=== PATIENT | female | born 1945 | race Caucasian/White ===

== ENCOUNTER 2017-04-25 06:08 | Emergency (ER) | payer MEDICARE, OTHER ==
[~2017-04-25] VITALS: Ht 157.5 cm; Wt 72.5 kg
[2017-04-25 06:11] VITALS: BP 196/107; PULSE 70; RESP 20; TEMP 97.5; O2SAT 97
[2017-04-25] MEDS ORDERED: LIDOCAINE HCL 1% PF 2 ML VIAL ONE (06:35)
[2017-04-25] MEDS ORDERED: CELE20TA PO (06:36)
[2017-04-25] MEDS ORDERED: REST30CA PO (06:36)
[2017-04-25] MEDS ORDERED: TRAM50TA PO (06:36)
[2017-04-25] MEDS ORDERED: GABA300C5 PO (06:36)
[2017-04-25] MEDS ORDERED: DICL1CAP4 PO (06:36)
--- NOTE | 2017-04-25 06:44 | PD ---
Physical Exam Date Seen by Provider: Apr 25, 2017 Time Seen by Provider: 06:42 Narrative Skin: Patient has a 3 cm laceration to the left parietal scalp. Data Data Last Documented VS Vital Signs Date Time Temp Pulse Resp B/P (MAP) Pulse Ox O2 Delivery O2 Flow Rate FiO2 04/25/17 06:11 97.5 70 20 196/107 (136) 97 Room Air Orders Orders Oxycodone-Acetamin 5-325 Mg (Percocet (04/25/17 06:45) Ct Brain W/O Iv Contrast(Rout) (04/25/17 ) Ct Cerv Spine W/O Contrast (04/25/17 ) Shoulder, Complete (>2vws) (04/25/17 ) Elbow, Complete (4 Vws) (04/25/17 ) Knee, Complete (4vws) (04/25/17 ) Foot, Complete (Kpo6hpd) (04/25/17 ) Ankle, Complete (Nrp8vkg) (04/25/17 ) Foot, Complete (Htn7pqo) (04/25/17 ) Lidocaine Pf 1% Inj (Xylocaine-Mpf 1% In (04/25/17 06:35) MDM Medical Record Reviewed: Yes Supervised Visit with BRISSA: Yes Differential Diagnosis MDM: High Differential diagnoses: Fracture, sprain, strain, dislocation, contusion, neurovascular injury Narrative Course Patient's laceration is closed with 3 sarthak Procedures Procedure Narrative LACERATION LOCATION: Left parietal scalp LENGTH: 3 cm NUMBER OF STITCHES/SARTHAK: 3 REPAIR: The area of the laceration was prepped with Betadine and sterilely draped. The laceration was infiltrated with 1% lidocaine. The wound was copiously irrigated and explored without evidence of foreign body, tendon injury or neurovascular injury. The wound was closed using sarthak. This was a simple single layer repair. The patient was advised to keep the dressing clean and dry. Patient tolerated the procedure well. Patient Instructions: General Instructions Additional Instruction: Rest. Elevation. Tylenol for pain. Daily wound care with soap, water, Neosporin. [place] out in 9 days. Return to the ER if any problems. Med/Other Pt SpecificInfo: Wound Care Romain Aguirre Apr 25, 2017 06:44
[2017-04-25] MEDS ORDERED: oxyCODONE/ACETAMINOPHEN 5 MG/325 MG TAB PO ONE (06:45)
--- NOTE | 2017-04-25 07:07 | RADRPT ---
EXAM DATE/TIME: 04/25/2017 06:54 [facility] COMPARISON: No previous studies available for comparison. INDICATIONS : Patient fell. Laceration to left side of head. RADIATION DOSE: 33.32 CTDIvol (mGy) MEDICAL HISTORY : None SURGICAL HISTORY : None. ENCOUNTER: Initial ACUITY: 1 day PAIN SCALE: 7/10 LOCATION: Left cranial TECHNIQUE: Multiple contiguous axial images were obtained of the head. Using automated exposure control and adj ustment of the mA and/or kV according to patient size, radiation dose was kept as low as reasonably a chievable to obtain optimal diagnostic quality images. DICOM format image data is available electro nically for review and comparison. FINDINGS: There is mild volume loss. No hemorrhage, infarct, or mass. There are no fractures. Left frontal scal p skin sarthak are identified. CONCLUSION: Mild atrophy. No intracranial hemorrhage or mass. Colton Horn MD on April 25, 2017 at 7:04 Board Certified Radiologist. This report was verified electronically.
--- NOTE | 2017-04-25 07:10 | PD ---
HPI Chief Complaint: Fall Time Seen by Provider: 06:23 Travel History International Travel<30 days: No Contact w/Intl Traveler<30days: No Traveled to known affect area: No History of Present Illness HPI Patient is a 71 year old female who comes in complaining of pain to her left side after she tripped over her dog and fell. She says she hit her head, left shoulder, knee and foot. She denies any LOC. She complains of some dizziness after the fall. She says she was feeling well prior to the fall. She denies any chest pain or shortness of breath. She says she is unable to move her left arm due to the pain. She was able to walk after the incident. She takes pain medicine at home for chronic pain due to arthritis. PFSH Past Medical History Arthritis: Yes Diminished Hearing: No ?: Not Social History Alcohol Use: No Tobacco Use: Yes (5 CIGARETTES/DAY) Substance Use: No Allergies-Medications (Allergen,Severity, Reaction): Coded Allergies: No Known Allergies (Unverified , 04/25/17) Reported Meds & Prescriptions Reported Meds & Active Scripts Active Percocet (Oxycodone-Acetaminophen) 5-325 mg Tab 1 Tab PO Q6H PRN Reported Restoril (Temazepam) 30 Mg Cap 30 Mg PO HS PRN Celexa (Citalopram Hydrobromide) 20 Mg Tab 20 Mg PO DAILY Zorvolex (Diclofenac) 35 Mg Cap 75 Mg PO DAILY Gabapentin 300 Mg Cap 300 Mg PO QID Tramadol (Tramadol HCl) 50 Mg Tab 50 Mg PO DAILY PRN Review of Systems Except as stated in HPI: all other systems reviewed are Neg General / Constitutional: No: Fever, Chills HENT: Positive: Headaches Cardiovascular: No: Chest Pain or Discomfort Respiratory: No: Shortness of Breath Gastrointestinal: No: Nausea, Vomiting Musculoskeletal: Positive: Pain Skin: No Rash, No Change in Pigmentation Neurologic: Positive: Dizziness, No: Weakness Physical Exam Narrative GENERAL: Awake and alert, in no acute distress. SKIN: Focused skin assessment warm/dry. 2 cm laceration to the left side of the scalp. HEAD: Normocephalic. EYES: Pupils equal and round. No scleral icterus. ENT: Mucous membranes pink and moist. NECK: Trachea midline. No JVD. Tender to palpation of the cervical spine, she says it hurts her shoulder. CARDIOVASCULAR: Regular rate and rhythm. No murmur appreciated. RESPIRATORY: No accessory muscle use. Clear to auscultation. Breath sounds equal bilaterally. GASTROINTESTINAL: Abdomen soft, non-tender, nondistended. MUSCULOSKELETAL: No obvious deformities. No clubbing. No cyanosis. No edema. No pelvic or hip tenderness. Tender to palpation of the left shoulder. Radial pulse intact. Tender to palpation of left elbow. Tender to palpation of the left knee as well as left ankle. Tender to palpation of the right foot. NEUROLOGICAL: Awake and alert. No obvious cranial nerve deficits. Motor grossly within normal limits. Normal speech. PSYCHIATRIC: Appropriate mood and affect; insight and judgment normal. Data Data Last Documented VS Vital Signs Date Time Temp Pulse Resp B/P (MAP) Pulse Ox O2 Delivery O2 Flow Rate FiO2 04/25/17 10:16 69 15 95 04/25/17 06:11 97.5 Room Air Orders Orders Oxycodone-Acetamin 5-325 Mg (Percocet (04/25/17 06:45) Ct Brain W/O Iv Contrast(Rout) (04/25/17 ) Ct Cerv Spine W/O Contrast (04/25/17 ) Knee, Complete (4vws) (04/25/17 ) Foot, Complete (Rnp7tvv) (04/25/17 ) Ankle, Complete (Yzx9zqw) (04/25/17 ) Foot, Complete (Sxp9yfx) (04/25/17 ) Lidocaine Pf 1% Inj (Xylocaine-Mpf 1% In (04/25/17 06:35) Shoulder, Limited(2vws) (04/25/17 ) Elbow, Limited (Ap&Lat) (04/25/17 ) Morphine Inj (Morphine Inj) (04/25/17 08:45) Ondansetron Inj (Zofran Inj) (04/25/17 08:45) Sling And Swathe (04/25/17 ) Sling And Swathe (04/25/17 ) MDM Medical Decision Making Medical Screen Exam Complete: Yes Emergency Medical Condition: Yes Medical Record Reviewed: Yes Differential Diagnosis ICH versus skull fracture versus concussion versus humeral fracture versus patellar fracture versus ankle fracture versus strain Narrative Course Patient is a 71-year-old female comes in after she tripped and fell over her dog. She complains of pain to the left side of her body. Exam shows a laceration to the left side of her head as well as tenderness to the arm and leg. Patient given pain medicine. Laceration repaired with sarthak by MARGARET Mcdonald. Imaging of her head, C-spine, left arm, left leg as well as her right foot ordered. Patient signed out to Dr. Huber to follow up imaging and disposition the patient appropriately. Patient Instructions: General Instructions Additional Instructions: Rest. Elevation. Tylenol for pain. Daily wound care with soap, water, Neosporin. [place] out in 9 days. Return to the ER if any problems. Scripts Oxycodone-Acetaminophen (Percocet) 5-325 mg Tab 1 TAB PO Q6H Y for PAIN, #30 TAB 0 Refills Prov: Prasad Huber MD 04/25/17 Condition: Stable Thi Prince MD Apr 25, 2017 07:10
--- NOTE | 2017-04-25 07:22 | RADRPT ---
EXAM DATE/TIME: 04/25/2017 06:54 [facility] COMPARISON: No previous studies available for comparison. INDICATIONS : Patient fell. Hit left side of head. RADIATION DOSE: 20.06 CTDIvol (mGy) MEDICAL HISTORY : None SURGICAL HISTORY : None. ENCOUNTER: Initial ACUITY: 1 day PAIN SCALE: 0/10 LOCATION: neck TECHNIQUE: Volumetric scanning of the cervical spine was performed. Multiplanar reconstructions in the sagittal, coronal and oblique axial planes were performed. Using automated exposure control and adjustment o f the mA and/or kV according to patient size, radiation dose was kept as low as reasonably achievable to obtain optimal diagnostic quality images. DICOM format image data is available electronically f or review and comparison. FINDINGS: No prevertebral soft tissue swelling. C1-C2 relationship is normal, and the odontoid process is intac t. There is pgfr-kc-[id number] disc space sac throughout the cervical spine most pronounced at C5-6 wit h mild endplate sclerosis and osteophytosis. Grade 1 anterolisthesis of C7 on T1. Moderate multilevel facet hypertrophic changes are noted. There are no compression deformities. Multilevel uncovertebral hypertrophy is present. There is severe right foraminal stenosis at C3-4 secondary to facet and numb er vertebral hypertrophy. Severe foraminal stenosis at C4-5 on the right secondary to facet and uncov ertebral hypertrophy. There is moderate to severe bilateral foraminal narrowing at C5-6 secondary to facet and uncovertebral hypertrophy. Associated mild to moderate canal narrowing. There is moderate t o severe left, mild right foraminal stenosis at C6-7 secondary to facet and upper vertebral hypertrop hy with mild canal stenosis. Emphysematous changes are identified on lung windows. CONCLUSION: Moderate to severe degenerative changes with no fracture identified. Colton Horn MD on April 25, 2017 at 7:17 Board Certified Radiologist. This report was verified electronically.
--- NOTE | 2017-04-25 07:39 | RADRPT ---
EXAM DATE/TIME: 04/25/2017 07:05 [facility] COMPARISON: No previous studies available for comparison. INDICATIONS : Fall pain with motion., MEDICAL HISTORY : None. SURGICAL HISTORY : None. ENCOUNTER: Initial ACUITY: 1 day PAIN SCORE: 4/10 LOCATION: Left knee. FINDINGS: The bone density is decreased. Moderate to severe osteoarthritis of the knee involving all 3 compartm ents. Tiny knee joint effusion. CONCLUSION: Osteoarthritis. No fracture or dislocation. Colton Horn MD on April 25, 2017 at 7:37 Board Certified Radiologist. This report was verified electronically.
--- NOTE | 2017-04-25 07:39 | RADRPT ---
EXAM DATE/TIME: 04/25/2017 07:03 [facility] COMPARISON: No previous studies available for comparison. INDICATIONS : Fall deformity difficulty movement MEDICAL HISTORY : None. SURGICAL HISTORY : None. ENCOUNTER: Initial ACUITY: 1 day PAIN SCORE: 10/10 LOCATION: Left shoulder FINDINGS: Heavily comminuted fracture of the left proximal humerus at the surgical neck and head with displaced fragment off the greater tuberosity identified. The bone density is decreased. CONCLUSION: Left proximal humerus fracture. Colton Horn MD on April 25, 2017 at 7:36 Board Certified Radiologist. This report was verified electronically.
--- NOTE | 2017-04-25 07:39 | RADRPT ---
EXAM DATE/TIME: 04/25/2017 07:06 [facility] COMPARISON: No previous studies available for comparison. INDICATIONS : Fall pain lateral ankle. MEDICAL HISTORY : None. SURGICAL HISTORY : None. ENCOUNTER: Initial ACUITY: 1 day PAIN SCORE: 5/10 LOCATION: Left ankle FINDINGS: The bone density is decreased. There is mild soft tissue swelling at the lateral aspect of the ankle. The ankle mortise is approximated. No fractures are seen. CONCLUSION: Slight soft tissue swelling laterally without obvious fracture. Colton Horn MD on April 25, 2017 at 7:37 Board Certified Radiologist. This report was verified electronically.
--- NOTE | 2017-04-25 07:40 | RADRPT ---
EXAM DATE/TIME: 04/25/2017 07:13 [facility] COMPARISON: No previous studies available for comparison. INDICATIONS : Fall pain with motion. MEDICAL HISTORY : None. SURGICAL HISTORY : None. ENCOUNTER: Initial ACUITY: 1 day PAIN SCORE: 8/10 LOCATION: Left elbow. FINDINGS: The bone density is decreased. A true lateral view is not obtained. No obvious fracture identified. CONCLUSION: No acute disease. Colton Horn MD on April 25, 2017 at 7:39 Board Certified Radiologist. This report was verified electronically.
--- NOTE | 2017-04-25 07:40 | RADRPT ---
EXAM DATE/TIME: 04/25/2017 07:10 [facility] COMPARISON: FOOT LEFT COMPLETE ([id number]), April 25, 2017, 7:07. INDICATIONS : Fall pain medial foot great toe area. MEDICAL HISTORY : None. SURGICAL HISTORY : None. ENCOUNTER: Initial ACUITY: 1 day PAIN SCORE: 4/10 LOCATION: Right foot. FINDINGS: The bone density is decreased. Metatarsus primus varus and hallux valgus deformity identified. No fra cture or dislocation. Soft tissues are unremarkable. CONCLUSION: No acute disease. Colton Horn MD on April 25, 2017 at 7:38 Board Certified Radiologist. This report was verified electronically.
--- NOTE | 2017-04-25 07:40 | RADRPT ---
EXAM DATE/TIME: 04/25/2017 07:07 [facility] COMPARISON: No previous studies available for comparison. INDICATIONS : Fall pain lateral foot. MEDICAL HISTORY : None. SURGICAL HISTORY : None. ENCOUNTER: Initial ACUITY: 1 day PAIN SCORE: 4/10 LOCATION: Left foot. FINDINGS: The bone density is decreased. No fracture or dislocation. Joint space widths are intact. CONCLUSION: No fracture or dislocation. Colton Horn MD on April 25, 2017 at 7:38 Board Certified Radiologist. This report was verified electronically.
[2017-04-25] MEDS ORDERED: ONDANSETRON HCL 4 MG/2 ML VIAL IV ONE (08:45)
[2017-04-25] MEDS ORDERED: MORPHINE SULFATE 4 MG/ML INJ IV PUSH ONE (08:45)
[2017-04-25] MEDS ORDERED: PERC5TAB12 PO (09:14)
--- NOTE | 2017-04-25 09:19 | PD ---
Data Data Last Documented VS Vital Signs Date Time Temp Pulse Resp B/P (MAP) Pulse Ox O2 Delivery O2 Flow Rate FiO2 04/25/17 06:11 97.5 70 20 196/107 (136) 97 Room Air Orders Orders Oxycodone-Acetamin 5-325 Mg (Percocet (04/25/17 06:45) Ct Brain W/O Iv Contrast(Rout) (04/25/17 ) Ct Cerv Spine W/O Contrast (04/25/17 ) Knee, Complete (4vws) (04/25/17 ) Foot, Complete (Xjj9tfh) (04/25/17 ) Ankle, Complete (Dyg2coi) (04/25/17 ) Foot, Complete (Czm6tqu) (04/25/17 ) Lidocaine Pf 1% Inj (Xylocaine-Mpf 1% In (04/25/17 06:35) Shoulder, Limited(2vws) (04/25/17 ) Elbow, Limited (Ap&Lat) (04/25/17 ) Morphine Inj (Morphine Inj) (04/25/17 08:45) Ondansetron Inj (Zofran Inj) (04/25/17 08:45) Sling And Swathe (04/25/17 ) MDM Supervised Visit with BRISSA: No Narrative Course This case is checked out to me by Dr. Rios at 7 AM. I have reevaluated the patient. I removed her ring on her left hand. Her left arm is neurovascularly intact. I reviewed her imaging studies. Brain CT and cervical spine CTs show no fracture or traumatic injury. X-rays of the hand and knee and elbow are negative for fracture. Shoulder x-ray reveals a proximal left humerus fracture at the surgical neck. There is significant comminution and some displacement I called and discussed it with orthopedist Dr. Mk Brown, specifically his PA Mk as the orthopedist was operating. He looked at the x-ray and recommended sling and swath and they will see her in the outpatient clinic Patient is given his number to call and make an appointment when they get home. I gave her 30 Percocet and reviewed side effect profile. Recommend icing as well. Diagnosis Primary Impression: Closed left humeral fracture Qualified Codes: S42.232A - 3-part fracture of surgical neck of left humerus, initial encounter for closed fracture Additional Impression: Head injury due to trauma Qualified Codes: S09.90XA - Unspecified injury of head, initial encounter Patient Instructions: General Instructions Additional Instruction: Call the office of Dr. Brown for follow-up Apply ice left shoulder Wear sling and swath The patient was warned about potential sedation for the medications they will receive on prescription. Scripts Oxycodone-Acetaminophen (Percocet) 5-325 mg Tab 1 TAB PO Q6H Y for PAIN, #30 TAB 0 Refills Prov: Prasad Huber MD 04/25/17 Disposition: 01 DISCHARGE HOME Condition: Stable Prasad Huber MD Apr 25, 2017 09:19
== END 2017-04-25 10:17 | disposition home or self-care (01) ==
LOC: NEPE 06:08
DX: S42.232A 3-part fracture of surgical neck of left humerus, initial encounter for closed fracture (principal); S01.01XA Laceration without foreign body of scalp, initial encounter; M25.562 Pain in left knee; M79.672 Pain in left foot; F17.210 Nicotine dependence, cigarettes, uncomplicated; W01.0XXA Fall on same level from slipping, tripping and stumbling without subsequent striking against object, initial encounter; Y92.009 Unspecified place in unspecified non-institutional (private) residence as the place of occurrence of the external cause; Y99.8 Other external cause status
CPT/HCPCS: 12002; 29240; 70450; 72125; 73030; 73070; 73564; 73610; 73630; 96374; 96375; 99285; J2270; J2405

== ENCOUNTER → 2018-01-19 | Outpatient (CLI) | payer OTHER ==
[~2018-01-19] MED LIST: CALCTAB19 PO; CELE20TA PO; CITA40TA4 PO; DICL1CAP4 PO; DICL75TA PO; ENDO7.5T10 PO; GABA300C5 PO; PERC5TAB12 PO; REST30CA PO; TEMA30CA PO; TRAM50TA PO; VITA2000 PO; VITA500012 PO
== END ==
LOC: CPRE 11:26
PROVIDERS: ATTEND Orthopaedic Surgery Orthopaedic Surgery of the Spine
DX: M17.11 Unilateral primary osteoarthritis, right knee (principal)

== ENCOUNTER 2018-06-22 09:44 | Inpatient (IN) ==
[2018-06-22] MEDS ORDERED: Metoprolol Tartrate 25 MG Tablet PO ONE (10:10)
[2018-06-22] MEDS ORDERED: Chlorhexidine Gluconate 2% 1 Pack (2 Cloths) TOPICAL ONE (10:10)
[2018-06-22] MEDS ORDERED: Chlorhexidine 4% Topical 120 APPLIC/120 ML Bottle TOPICAL SCH (10:15)
[2018-06-22] MEDS ORDERED: Sodium Chlor 0.9% Inj 73.07 ML, Ropivacaine 0.5% PF Inj 24.63 ML, Ketorolac Inj 30 MG, ... P-ARTICULR SCH ×5 (10:30)
[2018-06-22] MEDS ORDERED: Vancomycin Inj 1,000 MG in Sodium Chlor 0.9% Inj 250 ML IV.SIG SCH (11:00)
[2018-06-22] MEDS ORDERED: Sodium Chlor 0.9% Inj 500 ML IV.SIG SCH (11:00)
[2018-06-22] MEDS ORDERED: ceFAZolin 2 GM Premix Inj 2 GM/50 ML PIGGYBACK IV.SIG SCH (11:00)
[2018-06-22] MEDS ORDERED: Ropivacaine 0.5% PF Inj 20 ML Vial ONE (11:39)
[2018-06-22] MEDS ORDERED: Lidocaine PF 1% Inj 5 ML Syringe OTHER ONE (12:39)
[2018-06-22] MEDS ORDERED: Glycopyrrolate Inj 1 MG/5 ML Syringe IV.PUSH ONE (12:39)
[2018-06-22] MEDS ORDERED: Neostigmine Inj 5 MG/5 ML Syringe IV.PUSH ONE (12:39)
[2018-06-22] MEDS ORDERED: Post-op Orders (for Pharmacy) OTHER STA (14:43)
[2018-06-22] MEDS ORDERED: Bisacodyl 10 MG Supp RECTAL PRN (14:43)
[2018-06-22] MEDS ORDERED: Morphine Inj 4 MG/ML Vial IV.PUSH PRN (14:43)
[2018-06-22] MEDS ORDERED: fentaNYL Citrate Inj 100 MCG/2 ML Ampul ONE (14:49)
[2018-06-22] MEDS ORDERED: *morphine SULFATE 4 MG/ML PERIprocedure ONLY ONE ×3 (14:50→15:43)
[2018-06-22] MEDS ORDERED: *Meperidine Inj 25 MG/ML Vial PERIprocedural Use ONLY ONE (15:27)
--- NOTE | 2018-06-22 15:30 | MP ---
cc: Alfonso Yuan MD DATE OF OPERATION: 06/22/2018 PREOPERATIVE DIAGNOSES: Left knee severe tricompartment osteoarthritis, severe genu valgus deformity. POSTOPERATIVE DIAGNOSIS: Left knee severe tricompartment osteoarthritis, severe genu valgus deformity. PROCEDURE PERFORMED: Left total knee arthroplasty -- cemented [employer]. SURGEON: Alfonso Yuan MD RECYCLING OPERATOR: Veronica See PA-C ANESTHESIA: General, adductor canal saphenous nerve block, intraarticular block. TOURNIQUET TIME: 54 minutes at 250 mmHg. COMPLICATIONS: None. SPECIMENS: None. PLAN: Activity per orders. PROCEDURE: My mobile sales assistant, Veronica See PA-C, was present for the entire surgical case. She was medically necessary for the entire case because of the complexity of the case and to facilitate the performance of the procedure. The SCHOOL SECRETARY was at the back table and did not have the skill set for this case to manipulate the instruments, e.g. multiple soft tissue retractors, trial implants and permanent implants including bone cement. PROCEDURE DETAILS: The patient was brought to the operating room and had satisfactory anesthesia by the Department of Anesthesia. The left lower extremity was prepped and draped in the usual sterile manner. The extremity was exsanguinated by elevation and tourniquet was inflated to 250 mmHg. Small anterior medial exposure of the knee was made. The patient was found to have large varicose veins. These were all individually coagulated. A paramedian capsulotomy was performed. The patient was found to have severe tricompartmental osteoarthritis with genu valgus deformity. The remaining portion of the medial and lateral meniscus was removed. The anterior cruciate ligament was removed. The posterior cruciate ligament was preserved. Prepatellar fat pad was surgically excised. Using the [employer] total knee arthroplasty system, IM guide was used in the distal femur to accept a 65 mm femoral component with 5 degree valgus cut. Extramedullary guide was used on the proximal tibia to accept a 75 mm tibial component. Appropriate soft tissue releases were performed. A trial reduction was made with a 12 mm insert and was found to be excellent stability in both flexion and extension. Undersurface of the patellar was grooved to accept a 31 mm 3-pronged patellar prosthesis. All trial components were removed. Preparation for cementing was made. The knee initially was anesthetized with 100 mL of local anesthesia provided by Department of Pharmacy. Two packages of high-viscosity bone cement were used. First, the tibial component was cemented, which was a 75 mm tibial component, followed by the femoral component, which was a 65 mm femoral component. A 12 x 75 mm trial polyethylene plastic was used as an insert. Undersurface of the patella was cemented and a 31 mm 3-pronged patellar prosthesis was fixated to the patella. All excess bone cement removed. The bone cement was allowed to harden for 13 minutes. The trial prosthetic was removed. The polyethylene plastic was removed. A 12 x 75 mm polyethylene plastic "lipped" was then inserted onto the proximal tibial metal tray. Polyethylene plastic was then appropriately attached with appropriate clipping mechanism. Tourniquet was deflated. Lateral retinacular release was performed. The patella was then found to groove well in the patellofemoral compartment with a "no thumbs technique." The wound was closed over two 1/8 inch Hemovac drains. The knee was irrigated with 4000 mL of sterile saline antibiotic solution. The wounds themselves were dry. The wound was closed in layers with the capsule and extensor mechanism closed with multiple interrupted #2 Ti-Cron suture subcuticularly with 0 Vicryl and 2-0 Vicryl. Skin was approximated with skin sarthak. The patient tolerated the procedure well and arrived in the recovery room in stable and satisfactory condition. MD BRICE Mccarthy/vijay , 02:30 PM , 02:40 PM
--- NOTE | 2018-06-22 15:31 | XR ---
EXAM DATE: 06/22/2018 3:27 PM EST AGE/SEX: 72 years / Female INDICATIONS: Post op left knee replacement. CLINICAL DATA: This is the patient's initial encounter. Patient reports that signs and symptoms have been present for 1 day and indicates a pain score of Nonresponsive. MEDICAL/SURGICAL HISTORY: None. . right knee replacement. [place] [facility] [place]1 [place] 2 VWS[place] 02/02/2018. . FINDINGS: The patient is post knee arthroplasty. The orthopedic hardware is in excellent position. The alignmen t is good. CONCLUSION: Orthopedic hardware in excellent position. Electronically signed by: Ramiro Pedroza MD 06/22/2018 3:29 PM EST
[2018-06-22] MEDS: Gabapentin 300 MG Capsule PO SCH (18:49)
[2018-06-22] MEDS: ceFAZolin 1 GM Premix Inj 1 GM/50 ML IV.SIG SCH (18:49)
[2018-06-22] MEDS: Senna/Docusate Sodium 8.6/50 MG Tablet PO SCH (22:19)
[2018-06-23] MEDS: ceFAZolin 1 GM Premix Inj 1 GM/50 ML IV.SIG SCH ×2 (01:55→07:19)
[2018-06-23 06:22] LABS: Hematocrit 27.7 % (35.0-46.0); Hemoglobin 9.3 gm/dL (11.6-15.3)
--- NOTE | 2018-06-23 07:20 | P.PNOP ---
Subjective Interval history: POD# 1 L TKR No SOB;no chest pain Explained operative findings;answered mutiple questions;seen with daughter Physical Exam Vital signs: Vital Signs 06/22/18 11:25 06/22/18 12:15 06/22/18 14:40 Temperature 98.8 F 97.5 F L Pulse Rate 64 68 98 H Respiratory Rate 16 18 Blood Pressure 123/76 142/78 H Pulse Oximetry 99 100 99 06/22/18 14:42 06/22/18 14:45 06/22/18 15:00 Temperature Pulse Rate 94 H 87 71 Respiratory Rate 38 H 17 12 Blood Pressure 148/77 H 145/72 H Pulse Oximetry 99 100 100 06/22/18 15:15 06/22/18 15:30 06/22/18 15:45 Temperature 97.6 F Pulse Rate 68 62 80 Respiratory Rate 16 12 20 Blood Pressure 153/65 H 150/70 H 147/77 H Pulse Oximetry 100 100 100 06/22/18 15:52 06/22/18 15:56 06/22/18 16:00 Temperature Pulse Rate 64 Respiratory Rate 12 12 12 Blood Pressure 127/61 Pulse Oximetry 100 06/22/18 16:15 06/22/18 19:50 06/23/18 00:05 Temperature 98.1 F 98.1 F Pulse Rate 66 92 H 79 Respiratory Rate 12 16 17 Blood Pressure 132/63 98/57 L 100/57 L Pulse Oximetry 100 97 95 06/23/18 04:20 Temperature 98.6 F Pulse Rate 80 Respiratory Rate 17 Blood Pressure 92/51 L Pulse Oximetry 94 L Intake & Output 06/22/18 06/23/18 06/23/18 18:59 06:59 18:59 Intake Total 1150 / 1150 1530 / 1530 Output Total 200 / 200 Balance 950 / 950 1530 / 1530 Weight 69.9 kg 69.9 kg Intake: IV 300 / 300 1050 / 1050 LR 1000 mL Inj 1,000 ML @ 80 1000 / 1000 mls/hr IV.CONT .[id number] SUNITHA Rx# :[id number] Vancomycin Inj 1,000 MG In NS 250 / 250 Inj 250 ML @ 250 mls/hr IV.SIG PASTORAL ASSISTANT SUNITHA Rx#:[id number] Ancef 1 GM Premix Inj 1 gm In 50 / 50 50 ml @ 100 mls/hr IV.SIG Q6H [facility] Rx#:[id number] Ancef 2 GM Premix Inj 2 gm In 50 / 50 50 ml @ 100 mls/hr IV.SIG PASTORAL ASSISTANT SUNITHA Rx#:[id number] Oral 480 / 480 Anesthesia Amount 850 / 850 Output: Estimated Blood Loss 50 / 50 Wound Drainage 150 / 150 Left Hemovac 150 / 150 Other: # Voids 2 Weight On Admission 69.9 kg Narrative: Dressings changed N/V intact No calf tenderness;negative rakesh's sign Results - Labs CBC & Chem 7: 06/23/18 05:57 Laboratory Results - last 24 hr 06/22/18 06/23/18 10:20 05:57 Hgb 9.3 L Hct 27.7 L Blood Type O Positive Antibody Screen Negative MTS Gel Crossmatch See Detail - Imaging Impressions Knee X-Ray 06/22/18 14:42 CONCLUSION: Orthopedic hardware in excellent position. Assessment and Plan - Assessment and Plan Ortho stable Discharge to SNF today for continued Rehab Aspirin 81mg BID,TEDS x 4 weeks for DVT/PE prophylaxsis
[2018-06-23] MEDS: Gabapentin 300 MG Capsule PO SCH ×2 (09:10→12:59)
[2018-06-23] MEDS: Senna/Docusate Sodium 8.6/50 MG Tablet PO SCH (09:10)
--- NOTE | 2018-06-23 12:04 | P.CONIM ---
History of Present Illness Primary Care Provider: Ray Montiel MD History of Present Illness: Patient is a pleasant 72-year-old female with history of Lora's esophagus and grade 1 diastolic dysfunction. Patient underwent right total knee arthroplasty performed by Dr. Alfonso Yuan (). Patient had a brief episode of nonsustained ventricular tachycardia, 7 beat run. I have reviewed the available EKG strip. It appears that patient went back into normal sinus rhythm following this episode. Patient denies history of arrhythmia. Patient had echocardiogram (10/14/17) which showed ejection fraction of 55-60% and grade 1 diastolic dysfunction. Patient is interviewed and examined in her hospital room, POD #1. Patient has no clinical complaints. Patient denies chest pain or palpitations. Patient denies shortness of breath. Patient's pain is controlled and patient is eager for discharge to halfway facility. PMH: 1) osteoarthritis 2) Lora's esophagus 3) lumbar radiculopathy, bilateral 4) prediabetes 5) COPD by history 6) diastolic dysfunction, grade 1 7) diverticulosis 8) osteoporosis 9) sleep apnea PSH: 1) appendectomy 2) cataract surgery 3) section 4) hysterectomy 5) epidural steroid injection of the lumbar spine 6) varicose vein ligation 7) right total knee arthroplasty performed by Dr. Alfonso Yuan (06/23/18). FHX: Noncontributory SHX: - - Current smoker - occasional alcoholic beverage - NO illicit drugs ALL: NKDA OUTPT MEDS: 1) gabapentin 300 mg twice daily 2) Protonix 40 mg p.o. daily 3) temazepam 30 mg nightly as needed insomnia PMFSH Social History Social History Substance History: No History of Abuse Second Hand Smoke Exposure: Yes Smoking Status: Former smoker Tobacco Type: Cigarettes How Often Do You Have a Drink Containing Alcohol: 2 to 4 times a month Recent Travel in [facility] within the Last 8 Weeks: No Recent Out of Country Travel within the Last 8 Weeks: No Medications and Allergies Allergies Allergy/AdvReac Type Severity Reaction Status Date / Time No Known Allergies Allergy Verified 06/22/18 10:18 Home Medications Medication Instructions Recorded Confirmed Type aspirin 81 mg PO DAILY 06/19/18 06/22/18 History gabapentin 300 mg PO TID 06/19/18 06/22/18 History tramadol 50 mg PO HS 06/19/18 06/22/18 History Active Medications: Active Medications Hydrocodone Bitart/Acetaminophen ([place] 5/325) 1 tab PO Q4H PRN PRN Reason: PAIN LESS THAN 5 ON SCALE Last Admin: 06/23/18 08:55 Dose: 1 tab Hydrocodone Bitart/Acetaminophen ([place] 5/325) 2 tab PO Q6H PRN PRN Reason: PAIN SCALE 5 TO 10 Al Hydroxide/Mg Hydroxide (Milk Of Magnesia Liq) 30 ml PO BID PRN PRN Reason: Mild Constipation Aspirin (Aspirin Chew) 81 mg PO BID [facility] Last Admin: 06/23/18 09:10 Dose: 81 mg Bisacodyl (Dulcolax Supp) 10 mg RECTAL DAILY PRN PRN Reason: SEVERE CONSITIPATION Chlorhexidine Gluconate (Hibiclens 4% Topical) 1 applicatio TOPICAL ONCE [facility] Stop: 06/26/18 10:14 Gabapentin (Neurontin) 300 mg PO TID [facility] Last Admin: 06/23/18 09:10 Dose: 300 mg Cefazolin Sodium/Dextrose (Ancef 2 Gm Premix Inj) 2 gm in 50 mls @ 100 mls/hr IV.SIG SHOE RECONDITIONER [facility] Stop: 06/26/18 10:59 Last Infusion: 06/22/18 13:20 Dose: Infused Vancomycin HCl 1,000 mg/ (Sodium Chloride) 250 mls @ 250 mls/hr IV.SIG SHOE RECONDITIONER [facility] Stop: 06/25/18 10:11 Last Infusion: 06/22/18 13:53 Dose: Infused Lactated Ringer's (Lr 1000 Ml Inj) 1,000 mls @ 80 mls/hr IV.CONT .[id number] [facility] Last Admin: 06/23/18 03:02 Dose: 80 mls/hr Lactulose (Lactulose Liq) 30 ml PO DAILY PRN PRN Reason: SEVERE CONSITIPATION Miscellaneous Information (Misc Nursing Information) 0 each OTHER UNSCH PRN PRN Reason: SEE LABEL COMMENTS Stop: 06/23/18 14:43 Ondansetron HCl (Zofran Odt) 4 mg PO Q6H PRN PRN Reason: NAUSEA OR VOMITING Senna/Docusate Sodium (Ashley-Colace) 1 tab PO BID [facility] Last Admin: 06/23/18 09:10 Dose: 1 tab Sennosides (Senokot) 17.2 mg PO BID PRN PRN Reason: Moderate Constipation Sodium Chloride (Ns Flush) 2 ml IV.FLUSH BID [facility] Last Admin: 06/22/18 22:19 Dose: 2 ml Sodium Chloride (Ns Flush) 2 ml IV.FLUSH PRN PRN PRN Reason: FLUSH AFTER USING IV ACCESS Physical Exam Vital signs: Last Vital Signs Temp 98.3 F 06/23/18 08:00 Pulse 82 06/23/18 08:00 Resp 20 06/23/18 08:00 BP 95/52 L 06/23/18 08:00 Pulse Ox 96 06/23/18 08:00 Narrative: GENERAL: This is a well-nourished, well-developed patient, in no apparent distress. CARDIOVASCULAR: Regular rate and rhythm without murmurs, gallops, or rubs. RESPIRATORY: Clear to auscultation. Breath sounds equal bilaterally. No wheezes , rales, or rhonchi. GASTROINTESTINAL: Abdomen soft, non-tender, nondistended. Normal active bowel sounds MUSCULOSKELETAL: Extremities without clubbing, cyanosis, or edema. NEURO: Alert & Oriented x4 to person, place, time, situation. Moves all ext x4 Results Labs CBC & Chem 7: 06/23/18 05:57 Assessment and Plan Plan Patient is a pleasant 72-year-old female with history of Lora's esophagus and grade 1 diastolic dysfunction. Patient underwent right total knee arthroplasty performed by Dr. Alfonso Yuan (06/22/18). Patient had a brief episode of nonsustained ventricular tachycardia, 7 beat run. I have reviewed the available EKG strip. It appears that patient went back into normal sinus rhythm following this episode. Patient denies history of arrhythmia. Patient had echocardiogram (10/14/17) which showed ejection fraction of 55-60% and grade 1 diastolic dysfunction. Patient is interviewed and examined in her hospital room, POD #1. Patient has no clinical complaints. Patient denies chest pain or palpitations. Patient denies shortness of breath. Patient's pain is controlled and patient is eager for discharge to halfway facility. 1) NSVT, resolved - Patient had 7 beat run of ventricular tachycardia which appears to have then resolved to normal sinus rhythm - Echocardiogram (10/14/17)which showed ejection fraction of 55-60% and grade 1 diastolic dysfunction - 12 lead EKG (06/23/18) --> NSR, no acute ischemic changes - obtain stat BMP & Mag - if above tests are negative, then anticipate discharge to SNF this afternoon 2) TKA, right - performed by Dr. Alfonso Yuan (06/22/18) - ASA for DVT prophylaxis per Orthopedist - norco prn pain - laxatives prn - SNF after discharge 3) Lora's Esophagus - continue protonix
--- NOTE | 2018-06-23 12:51 | ECG ---
Date Performed: 06/22/2018 Time Performed: 15:08:11 PTAGE: 72 years EKG: Sinus rhythm NORMAL ECG Since the PREVIOUS TRACING , no significant change noted PREVIOUS TRACIN05/02/2017 07.03 DOCTOR: Georgina Meadows Interpretating Date/Time 06/23/2018 12:48:17
[2018-06-23 14:41] LABS: Carbon Dioxide 27.2 meq/L (21.0-32.0); Magnesium 1.8 mg/dL (1.5-2.5); Potassium 4.4 meq/L (3.5-5.1)
[2018-06-23 19:00] VITALS: RESP 20
[2018-06-23 19:01] VITALS: BP 99/66; PULSE 90; TEMP 98.5; O2SAT 99
--- NOTE | 2018-06-24 12:47 | ECG ---
Date Performed: 06/23/2018 Time Performed: 12:16:53 PTAGE: 72 years EKG: Sinus rhythm NORMAL ECG PREVIOUS TRACING : 06/22/2018 15.08 DOCTOR: Chas Adams Interpretating Date/Time 06/24/2018 12:43:18
== END 2018-06-23 23:29 ==
LOC: HSDI 09:44 → N06 16:30
PROVIDERS: ADMIT Orthopaedic Surgery Orthopaedic Surgery of the Spine; ATTEND Orthopaedic Surgery Orthopaedic Surgery of the Spine